=== PATIENT | female | born 1985 | race Caucasian/White ===

== ENCOUNTER 2023-04-18 16:51 | Emergency (ER) | payer BC ==
[2023-04-18 17:32] LABS: BASOPHILS ABSOLUTE AUTO 0.03 K/uL (0.00-0.10); BASOPHILS PERCENT AUTO 0.4 % (0.1-1.3); EOSINOPHILS ABSOLUTE AUTO 0.23 K/uL (0.00-0.40); EOSINOPHILS PERCENT AUTO 2.7 % (0.0-5.4); HEMATOCRIT 38.7 % (34.3-46.0); HEMOGLOBIN 12.7 g/dL (11.2-15.5); IMMATURE GRAN ABSOLUTE AUTO 0.03 K/uL (0.00-0.23); IMMATURE GRAN PERCENT AUTO 0.4 % (0.0-0.7); LYMPHOCYTES ABSOLUTE AUTO 1.94 K/uL (0.8-3.3); LYMPHOCYTES PERCENT AUTO 23.2 % (11.4-47.7); MEAN CORPUSCULAR HEMOGLOBIN 28.6 pg (31.6-35.5); MEAN CORPUSCULAR HGB CONC 32.8 g/dL (31.6-35.5); MEAN CORPUSCULAR VOLUME 87.2 fL (81.4-99.0); MONOCYTES ABSOLUTE AUTO 0.92 K/uL (0.20-0.90); NEUTROPHILS ABSOLUTE AUTO 5.22 K/uL (1.0-7.6); NEUTROPHILS PERCENT AUTO 62.3 % (40.0-78.1); PLATELET COUNT,PLT 352 K/uL (130-375); RED BLOOD CELL COUNT 4.44 M/uL (3.77-5.24); WHITE BLOOD CELL COUNT,WBC 8.4 K/uL (3.2-11.0)
[2023-04-18] MEDS ORDERED: Sodium Chloride 0.9% 1,000 ML IV ONE (17:59)
[2023-04-18] MEDS ORDERED: Sodium Chloride 0.9% 10 ML Syringe FLUSH PRN (17:59)
[2023-04-18 18:02] LABS: CALCIUM 9.3 mg/dL (8.5-10.1); CREATININE 0.7 mg/dL (0.6-1.0); EST CRCL DRUG DOSING (CG) 83.84 mL/min; MAGNESIUM 1.9 mg/dL (1.8-2.4); POTASSIUM,K 3.8 mmol/L (3.6-5.2); TSH ULTRASENSITIVE 1.487 uIU/mL (0.358-3.740)
[2023-04-18] MEDS ORDERED: Bacitracin Oint 1 GM U/D Packet TOP ONE (19:22)
== END 2023-04-18 20:25 | disposition home or self-care (01) ==
LOC: JP.ED 16:51
DX: M54.2 Cervicalgia (principal); R55 Syncope and collapse; E86.0 Dehydration; S00.81XA Abrasion of other part of head, initial encounter; X58.XXXA Exposure to other specified factors, initial encounter
CPT/HCPCS: 36415; 70450; 72125; 76377; 80048; 83605; 83735; 84443; 84703; 85025; 85379; 93005; 93010; 96360; 99283; 99284; J3490; J7030

== ENCOUNTER 2024-05-03 03:02 | Emergency (ER) | payer SELFPAY ==
[2024-05-03 04:01] LABS: BASOPHILS ABSOLUTE AUTO 0.03 K/uL (0.00-0.10); BASOPHILS PERCENT AUTO 0.4 % (0.1-1.3); EOSINOPHILS ABSOLUTE AUTO 0.21 K/uL (0.00-0.40); EOSINOPHILS PERCENT AUTO 2.9 % (0.0-5.4); HEMATOCRIT 33.6 % (34.3-46.0); HEMOGLOBIN 11.3 g/dL (11.2-15.5); IMMATURE GRAN PERCENT AUTO 0.1 % (0.0-0.7); LYMPHOCYTES ABSOLUTE AUTO 1.63 K/uL (0.8-3.3); LYMPHOCYTES PERCENT AUTO 22.9 % (11.4-47.7); MEAN CORPUSCULAR HEMOGLOBIN 28.2 pg (31.6-35.5); MEAN CORPUSCULAR HGB CONC 33.6 g/dL (31.6-35.5); MEAN CORPUSCULAR VOLUME 83.8 fL (81.4-99.0); MONOCYTES ABSOLUTE AUTO 0.81 K/uL (0.20-0.90); MONOCYTES PERCENT AUTO 11.4 % (3.3-12.6); NEUTROPHILS ABSOLUTE AUTO 4.44 K/uL (1.0-7.6); NEUTROPHILS PERCENT AUTO 62.3 % (40.0-78.1); PLATELET COUNT,PLT 285 K/uL (130-375); RED BLOOD CELL COUNT 4.01 M/uL (3.77-5.24); WHITE BLOOD CELL COUNT,WBC 7.1 K/uL (3.2-11.0)
[2024-05-03] MEDS: LORazepam 2 MG/ML SDV IM ONE (04:03)
[2024-05-03 04:04] LABS: IMMATURE GRAN ABSOLUTE AUTO 0.01 K/uL (0.00-0.23)
[2024-05-03 04:23] LABS: ANION GAP 14.4 mmol/L (5.0-14.0); CALCIUM 8.4 mg/dL (8.5-10.1); CREATININE 0.7 mg/dL (0.6-1.0); EST CRCL DRUG DOSING (CG) 83.03 mL/min; POTASSIUM,K 3.4 mmol/L (3.6-5.2); TROPONIN I HIGH SENSITIVITY 15.7 pg/mL (<=60.3)
== END 2024-05-03 08:37 | disposition home or self-care (01) ==
LOC: JP.ED 03:02
DX: I16.0 Hypertensive urgency (principal); F17.210 Nicotine dependence, cigarettes, uncomplicated; Z86.16 Personal history of COVID-19; Z79.51 Long term (current) use of inhaled steroids; Z88.1 Allergy status to other antibiotic agents
CPT/HCPCS: 36415; 80048; 84484; 85025; 93005; 96372; 99285; J2060

== ENCOUNTER 2024-05-03 22:37 | Emergency (ER) | payer SELFPAY ==
[2024-05-04] MEDS: LORazepam 2 MG/ML SDV IM ONE
== END 2024-05-04 06:52 | disposition home or self-care (01) ==
LOC: JP.ED 22:37
DX: F41.9 Anxiety disorder, unspecified (principal); Z88.8 Allergy status to other drugs, medicaments and biological substances; Z79.899 Other long term (current) drug therapy; Z86.16 Personal history of COVID-19
CPT/HCPCS: 96372; 99284; J2060

== ENCOUNTER 2024-05-26 17:59 | Emergency (ER) | payer SELFPAY ==
[2024-05-26] MEDS: oxyCODONE 5 MG Tab PO ONE (20:15)
== END 2024-05-26 20:26 | disposition home or self-care (01) ==
LOC: JP.ED 17:59
DX: S52.121A Displaced fracture of head of right radius, initial encounter for closed fracture (principal); Z88.1 Allergy status to other antibiotic agents; Z86.16 Personal history of COVID-19; W19.XXXA Unspecified fall, initial encounter
CPT/HCPCS: 73030; 73080; 73110; 99283; A9270